=== PATIENT | male | born 1985 | race Caucasian/White ===

== ENCOUNTER 2018-11-01 04:54 | Inpatient (IN) | payer OTHER ==
--- NOTE | 2018-11-01 05:58 | CR ---
INDICATION: Pain, swelling, and redness over the majority of posterior forearm TECHNIQUE: Forearm radiograph 2 views left COMPARISON: None FINDINGS: Bone: No acute fractures or aggressive bone lesions are identified. Joint: The visualized radiocarpal and elbow joints are unremarkable, but the elbow joint is not profiled. If there is pain or tenderness in this region, dedicated views of the elbow are recommended. Soft tissue: Unremarkable. No radiopaque foreign bodies are seen. IMPRESSION: 1. No acute osseous injuries or abnormalities are noted. Dictated by: Hakeem Mars MD @ 11/01/2018 05:56:51 (Electronically Signed)
--- NOTE | 2018-11-01 06:42 | EDM.PDOC ---
ED HPI GENERAL MEDICAL PROBLEM - General Chief Complaint: Upper Extremity Injury/Pain Stated Complaint: POSSIBLE INFECTION ON PT'S LT ARM Time Seen by Provider: 11/01/18 06:23 - History of Present Illness INITIAL COMMENTS - FREE TEXT/NARRATIVE: HISTORY AND PHYSICAL: History of present illness: Patient 33-year-old white male history of methamphetamine abuse who presents with concern of swelling redness of his left arm after injecting IV drugs yesterday. He denies fever chills nausea vomiting or other complaints Review of systems: As per history of present illness and below otherwise all systems reviewed and negative. Past medical history: As per history of present illness and as reviewed below otherwise noncontributory. Surgical history: As per history of present illness and as reviewed below otherwise noncontributory. Social history: No reported history of drug or alcohol abuse. Family history: As per history of present illness and as reviewed below otherwise noncontributory. Physical exam: HEENT: Atraumatic, normocephalic, pupils reactive, negative for conjunctival pallor or scleral icterus, mucous membranes moist, throat clear, neck supple, nontender, trachea midline. Lungs: Clear to auscultation, breath sounds equal bilaterally, chest nontender. Heart: S1S2, regular, negative for clicks, rubs, or JVD. Abdomen: Soft, nondistended, nontender. Negative for masses or hepatosplenomegaly. Negative for costovertebral tenderness. Pelvis: Stable nontender. Genitourinary: Deferred. Rectal: Deferred. Extremities: Patient is a large area of erythema of his left upper extremity with induration and tenderness and warmth there's no fluctuance neurovascular exam CMS unremarkable Neuro: Awake, alert, oriented. Cranial nerves II through XII unremarkable. Cerebellum unremarkable. Motor and sensory unremarkable throughout. Exam nonfocal. Diagnostics: CBC CMP blood cultures and lactic acid x-ray left upper extremity Therapeutics: Vancomycin gram IV Impression: #1 IV drug abuse #2 cellulitis left upper extremity Definitive disposition and diagnosis as appropriate pending reevaluation and review of above. left arm Pain Score (Numeric/FACES): 2 - Related Data Allergies Allergy/AdvReac Type Severity Reaction Status Date / Time No Known Allergies Allergy Verified 11/01/18 04:58 Home Meds: Home Meds . [No Known Home Meds] 11/01/18 [History] Past Medical History Psychiatric History: Reports: Anxiety, Depression Social & Family History - Family History Family Medical History: Noncontributory - Tobacco Use Smoking Status *Q: Current Every Day Smoker Years of Tobacco use: 1 Packs/Tins Daily: 1 - Recreational Drug Use Recreational Drug Use: Yes Drug Use in Last 12 Months: Yes Recreational Drug Type: Reports: Methamphetamine Recreational Drug Use Frequency: Socially Review of Systems - Review of Systems Review Of Systems: ROS reveals no pertinent complaints other than HPI. ED EXAM, GENERAL - Physical Exam Exam: See Below (See dictation) Course - Vital Signs Last Recorded V/S: Last Vital Signs Temp 36.9 C 11/01/18 06:34 Pulse 88 11/01/18 06:34 Resp 18 11/01/18 06:34 BP 129/85 11/01/18 06:34 Pulse Ox 98 11/01/18 06:34 - Orders/Labs/Meds Orders: Active Orders 24 hr Category Date Time Status COMPREHENSIVE METABOLIC PN,CMP [CHEM] Stat Lab 11/01/18 06:25 Ordered CULTURE BLOOD [BC] Stat Lab 11/01/18 06:25 Ordered CULTURE BLOOD [BC] Stat Lab 11/01/18 06:25 Ordered LACTIC ACID,WHOLE BLOOD [BG] Stat Lab 11/01/18 06:25 Ordered Vancomycin [Vancocin] 1 gm Med 11/01/18 06:26 Active Sodium Chloride 0.9% [Normal Saline] 250 ml IV ONETIME Blood Culture x2 Reflex Set [OM.PC] Stat Oth 11/01/18 06:25 Ordered Medication Orders Vancomycin HCl 1 gm/ Sodium (Chloride) 250 mls @ 166 mls/hr IV ONETIME ONE Stop: 11/01/18 07:56 Labs: Laboratory Tests 11/01/18 Range/Units 05:25 WBC 12.56 H (4.0-11.0) K/uL RBC 4.86 (4.50-5.90) M/uL Hgb 15.0 (13.0-17.0) g/dL Hct 43.0 (38.0-50.0) % MCV 88.5 (80.0-98.0) fL MCH 30.9 (27.0-32.0) pg MCHC 34.9 (31.0-37.0) g/dL RDW Std Deviation 38.6 (28.0-62.0) fl RDW Coeff of Sushil 12 (11.0-15.0) % Plt Count 200 (150-400) K/uL MPV 9.70 (7.40-12.00) fL Neut % (Auto) 76.8 (48.0-80.0) % Lymph % (Auto) 11.6 L (16.0-40.0) % [place] % (Auto) 9.4 (0.0-15.0) % Eos % (Auto) 2.0 (0.0-7.0) % Baso % (Auto) 0.2 (0.0-1.5) % Neut # (Auto) 9.6 H (1.4-5.7) K/uL Lymph # (Auto) 1.5 (0.6-2.4) K/uL [place] # (Auto) 1.2 H (0.0-0.8) K/uL Eos # (Auto) 0.3 (0.0-0.7) K/uL Baso # (Auto) 0.0 (0.0-0.1) K/uL Nucleated RBC % 0.0 /100WBC Nucleated RBCs # 0 K/uL Meds: Medications Generic Name Dose Route Start Last Admin Trade Name Freq PRN Reason Stop Dose Admin Vancomycin HCl 1 gm/ Sodium 250 mls @ 166 mls/hr 11/01/18 06:26 Chloride IV 11/01/18 07:56 ONETIME ONE Departure - Departure Time of Disposition: 06:41 Disposition: Refer to Observation Condition: Good Clinical Impression: Cellulitis - Discharge Information Referrals: PCP,None [Primary Care Provider] - - My Orders Last 24 Hours: My Active Orders 11/01/18 06:25 COMPREHENSIVE METABOLIC PN,CMP [CHEM] Stat CULTURE BLOOD [BC] Stat CULTURE BLOOD [BC] Stat LACTIC ACID,WHOLE BLOOD [BG] Stat Blood Culture x2 Reflex Set [OM.PC] Stat 11/01/18 06:26 Vancomycin [Vancocin] 1 gm Sodium Chloride 0.9% [Normal Saline] 250 ml IV ONETIME - Assessment/Plan Last 24 Hours: My Active Orders 11/01/18 06:25 COMPREHENSIVE METABOLIC PN,CMP [CHEM] Stat CULTURE BLOOD [BC] Stat CULTURE BLOOD [BC] Stat LACTIC ACID,WHOLE BLOOD [BG] Stat Blood Culture x2 Reflex Set [OM.PC] Stat 11/01/18 06:26 Vancomycin [Vancocin] 1 gm Sodium Chloride 0.9% [Normal Saline] 250 ml IV ONETIME
[2018-11-01 07:27] LABS: CHLORIDE,CL 102 mmol/L (98-107); SODIUM,NA 137 mmol/L (136-148)
[2018-11-01] MEDS ORDERED: Sodium Chloride 0.9% 2.5 ML Syringe FLUSH PRN (08:14)
[2018-11-01] MEDS ORDERED: Ondansetron 4 MG/2 ML SDV IVPUSH PRN (08:14)
--- NOTE | 2018-11-01 08:23 | PCM.HP ---
H&P History of Present Illness - General Date of Service: 11/01/18 Admit Problem/Dx: Admission Diagnosis/Problem Admission Diagnosis/Problem Cellulitis Source of Information: Patient History Limitations: Reports: No Limitations - History of Present Illness Initial Comments - Free Text/Narative: This 33 year old male with pmh of dyslipidemia presented to the ED with complaints of left arm swelling, pain and redness. He reports he got drunk and injected what he thinks was methamphetamines into his arm. He denies fevers, chills or chest pain. No palpitations or SOB. He denies abdominal pain or urinary concerns. He reports the swelling increased along with some pain so he felt he should be evaluated. He denies regular use of recreational drugs, but states "I get drunk and do stupid stuff." He He reports mild tingling to L hand , but has this normally to both hands from history of leos bite. In the ED leukocytosis noted at 12, 560, potassium 3.1. Forearm Xray negative for foreign bodies. BC obtained and he was treated with Vancomycin. He will be admitted for cellulitis secondary to IV drug use. left arm Pain Score (Numeric/FACES): 2 - Related Data Allergies/Adverse Reactions: Allergies Allergy/AdvReac Type Severity Reaction Status Date / Time No Known Allergies Allergy Verified 11/01/18 04:58 Home Medications: Home Meds . [No Known Home Meds] 11/01/18 [History] Past Medical History Cardiovascular History: Reports: High Cholesterol (reports he should be on statin, but haven't taken this in a long time.). Denies: Afib, Blood Clots/VTE/ DVT, CAD, Hypertension, [place] Respiratory History: Reports: None. Denies: Asthma, COPD Gastrointestinal History: Reports: None. Denies: GERD, GI Bleed Genitourinary History: Reports: None. Denies: Chronic Renal Insuffiency Musculoskeletal History: Reports: None Psychiatric History: Reports: Anxiety, Depression Endocrine/Metabolic History: Reports: None. Denies: Diabetes, Type II, Hypothyroidism Social & Family History - Family History Family Medical History: Noncontributory - Tobacco Use Smoking Status *Q: Current Every Day Smoker Years of Tobacco use: 1 Packs/Tins Daily: 1 - Alcohol Use Alcohol Use Frequency: Socially (binge drinking) - Recreational Drug Use Recreational Drug Use: Yes Drug Use in Last 12 Months: Yes Recreational Drug Type: Reports: Methamphetamine Recreational Drug Use Frequency: Socially - Living Situation & Occupation Occupation: Employed H&P Review of Systems - Review of Systems: Review Of Systems: See Below General: Denies: Fever, Chills, Malaise HEENT: Reports: No Symptoms. Denies: Headaches, Sinus Congestion, Sore Throat Pulmonary: Reports: No Symptoms. Denies: Shortness of Breath Cardiovascular: Reports: No Symptoms. Denies: Chest Pain Gastrointestinal: Reports: No Symptoms. Denies: Abdominal Pain, Black Stool, Bloody Stool, Diarrhea, Nausea, Vomiting Genitourinary: Reports: No Symptoms. Denies: Dysuria, Frequency, Burning Skin: Reports: Erythema (L arm) Psychiatric: Reports: No Symptoms Neurological: Reports: No Symptoms Hematologic/Lymphatic: Reports: No Symptoms Immunologic: Reports: No Symptoms Exam - Exam Exam: See Below - Vital Signs Vital Signs: Last Vital Signs Temp 98.5 F 11/01/18 06:34 Pulse 75 11/01/18 07:30 Resp 18 11/01/18 07:30 BP 118/74 11/01/18 07:30 Pulse Ox 97 11/01/18 07:30 Weight: 91 kg - Exam General: Alert, Oriented, Cooperative HEENT: Conjunctiva Clear, Mucosa Moist & Tiro, Posterior Pharynx Clear Lungs: Clear to Auscultation, Normal Respiratory Effort Cardiovascular: Regular Rate, Regular Rhythm, Normal S1, Normal S2 GI/Abdominal Exam: Normal Bowel Sounds, Soft, Non-Tender Back Exam: Normal Inspection, Full Range of Motion Extremities: Normal Range of Motion, No Pedal Edema, Normal Capillary Refill, Arm Pain (L forearm and AC region) Skin: Other (erythema noted to AC region or L arm all anterior, does wrap anteriorly over elbow. Extends distally to mid forearm does not extend proximally past elbow. Swelling and warm notd. No puncture site obvious no fluctuance noted.) Neuro Extensive - Mental Status: Alert, Oriented x3 Neuro Extensive - Motor, Sensory, Reflexes: CN II-XII Intact Psychiatric: Alert, Normal Affect, Normal Mood. No: Withdrawal Symptoms - Patient Data Lab Results Last 24 hrs: Laboratory Results - last 24 hr 11/01/18 11/01/18 11/01/18 Range/Units 05:25 06:30 06:30 WBC 12.56 H (4.0-11.0) K/uL RBC 4.86 (4.50-5.90) M/uL Hgb 15.0 (13.0-17.0) g/dL Hct 43.0 (38.0-50.0) % MCV 88.5 (80.0-98.0) fL MCH 30.9 (27.0-32.0) pg MCHC 34.9 (31.0-37.0) g/dL RDW Std Deviation 38.6 (28.0-62.0) fl RDW Coeff of Sushil 12 (11.0-15.0) % Plt Count 200 (150-400) K/uL MPV 9.70 (7.40-12.00) fL Neut % (Auto) 76.8 (48.0-80.0) % Lymph % (Auto) 11.6 L (16.0-40.0) % [place] % (Auto) 9.4 (0.0-15.0) % Eos % (Auto) 2.0 (0.0-7.0) % Baso % (Auto) 0.2 (0.0-1.5) % Neut # (Auto) 9.6 H (1.4-5.7) K/uL Lymph # (Auto) 1.5 (0.6-2.4) K/uL [place] # (Auto) 1.2 H (0.0-0.8) K/uL Eos # (Auto) 0.3 (0.0-0.7) K/uL Baso # (Auto) 0.0 (0.0-0.1) K/uL Nucleated RBC % 0.0 /100WBC Nucleated RBCs # 0 K/uL Lactate 1.7 (0.20-2.00) mmol/L Sodium 137 (136-148) mmol/L Potassium 3.1 L (3.5-5.1) mmol/L Chloride 102 (98-107) mmol/L Carbon Dioxide 22.1 (21.0-32.0) mmol/L BUN 6 L (7.0-18.0) mg/dL Creatinine 0.9 (0.8-1.3) mg/dL Est Cr Clr Drug Dosing 136.92 mL/min Estimated GFR (MDRD) > 60.0 ml/min Glucose 93 (74-106) mg/dL Calcium 8.9 (8.5-10.1) mg/dL Total Bilirubin 0.7 (0.2-1.0) mg/dL AST 21 (15-37) IU/L ALT 18 (14-63) IU/L Alkaline Phosphatase 70 (46-116) U/L Total Protein 7.3 (6.4-8.2) g/dL Albumin 3.5 (3.4-5.0) g/dL Globulin 3.8 (2.6-4.0) g/dL Albumin/Globulin Ratio 0.9 (0.9-1.6) Result Diagrams: 11/01/18 05:25 11/01/18 06:30 *Q Meaningful Use (ADM) - VTE Risk Assess *Q Each Risk Factor Represents 1 Point: None Total Score 1 Point Risk Factors: 0 Each Risk Factor Represents 2 Points: None Total Score 2 Point Risk Factors: 0 Each Risk Factor Represents 3 Points: None Total Score 3 Point Risk Factors: 0 Each Risk Factor Represents 5 Points: None Total Score 5 Point Risk Factors: 0 Venous Thromboembolism Risk Factor Score *Q: 0 - Problem List (1) Cellulitis SNOMED Code(s): 792635529 ICD Code: L03.90 - CELLULITIS, UNSPECIFIED Status: Acute Current Visit: Yes Qualifiers: Site of cellulitis: extremity Site of cellulitis of extremity: upper extremity Laterality: left Qualified Code(s): L03.114 - Cellulitis of left upper limb (2) Substance abuse SNOMED Code(s): 88888197 ICD Code: F19.10 - OTHER PSYCHOACTIVE SUBSTANCE ABUSE, UNCOMPLICATED Status : Acute Current Visit: Yes (3) Tobacco abuse SNOMED Code(s): 424257513 ICD Code: Z72.0 - TOBACCO USE Status: Chronic Current Visit: Yes (4) Dyslipidemia SNOMED Code(s): 778289089 ICD Code: E78.5 - HYPERLIPIDEMIA, UNSPECIFIED Status: Chronic Current Visit: Yes (5) Anxiety and depression SNOMED Code(s): 531933447 ICD Code: F41.9 - ANXIETY DISORDER, UNSPECIFIED; F32.9 - MAJOR DEPRESSIVE DISORDER, SINGLE EPISODE, UNSPECIFIED Status: Chronic Current Visit: Yes Problem List Initiated/Reviewed/Updated: Yes Orders Last 24hrs: Active Orders 24 hr Category Date Time Status Patient Status [ADT] Stat ADT 11/01/18 06:42 Active Intake and Output [RC] QSHIFT Care 11/01/18 08:15 Active May Shower [RC] ASDIRECTED Care 11/01/18 08:14 Active Oxygen Therapy [RC] PRN Care 11/01/18 08:15 Active Up ad Vicki [RC] ASDIRECTED Care 11/01/18 08:14 Active VTE/DVT Education [RC] PER UNIT ROUTINE Care 11/01/18 08:15 Active Vital Signs [RC] Q4H Care 11/01/18 08:15 Active Regular Diet [DIET] Diet 11/01/18 Breakfast Active BASIC METABOLIC PANEL,BMP [CHEM] AM Lab 11/02/18 05:11 Ordered CBC WITH AUTO DIFF [HEME] AM Lab 11/02/18 05:11 Ordered CULTURE BLOOD [BC] Stat Lab 11/01/18 06:30 Received CULTURE BLOOD [BC] Stat Lab 11/01/18 06:38 Received Acetaminophen [Tylenol] Med 11/01/18 08:14 Ordered 650 mg PO Q4H PRN Enoxaparin [Lovenox] Med 11/01/18 08:15 Ordered 40 mg SUBCUT Q24H Ibuprofen [Motrin] Med 11/01/18 08:14 Ordered 400 mg PO Q6H PRN Ondansetron [Zofran] Med 11/01/18 08:14 Ordered 4 mg IVPUSH Q4H PRN Pharmacy to Dose - Vancomycin Med 11/01/18 08:30 Ordered 1 dose .XX ASDIRECTED Sodium Chloride 0.9% [Saline Flush] Med 11/01/18 08:14 Ordered 2.5 ml FLUSH ASDIRECTED PRN Blood Culture x2 Reflex Set [OM.PC] Stat Oth 11/01/18 06:25 Ordered Saline Lock Insert [OM.PC] Routine Oth 11/01/18 08:14 Ordered Resuscitation Status Routine Resus Stat 11/01/18 08:14 Ordered Medication Orders Acetaminophen (Tylenol) 650 mg PO Q4H PRN PRN Reason: Pain (mild 1-3) Enoxaparin Sodium (Lovenox) 40 mg SUBCUT Q24H NOBLE Ibuprofen (Motrin) 400 mg PO Q6H PRN PRN Reason: Pain (mild 1-3) Ondansetron HCl (Zofran) 4 mg IVPUSH Q4H PRN PRN Reason: Nausea Sodium Chloride (Saline Flush) 2.5 ml FLUSH ASDIRECTED PRN PRN Reason: Keep Vein Open Vancomycin HCl (Pharmacy To Dose - Vancomycin) 1 dose .XX ASDIRECTED NOBLE Assessment/Plan Comment:: This 33 year old male admitted with L arm cellulitis secondary to IV drug injection 1. L arm cellulitis: No abscess noted. Continue Vancomycin. IVFs today. BC pending. Redness marked to monitor for progression. ABle to move all joints without worsening in pain. Monitor labwork in am. Tylenol and Ibuprofen for pain VTE prophylaxis: Lovenox. Dispo: 1-2 days pending improvement.
[2018-11-01] MEDS: Enoxaparin 40 MG/0.4 ML Syringe SUBCUT SCH (09:19)
[2018-11-01] MEDS: Sodium Chloride 0.9% 1,000 ML IV SCH ×2 (09:20→19:13)
[2018-11-01] MEDS: Vancomycin 1.5 GM in Sodium Chloride 0.9% 500 ML IV SCH ×2 (14:50→22:16)
[2018-11-01] MEDS: Ibuprofen 400 MG Tab PO PRN (14:52)
[2018-11-01] MEDS ORDERED: Potassium Chloride 20 MEQ Tab.ER PO ONE (17:00)
[2018-11-01] MEDS: Acetaminophen 325 MG Tab PO PRN (22:22)
[2018-11-02] MEDS: Vancomycin 1.5 GM in Sodium Chloride 0.9% 500 ML IV SCH ×3 (05:21→22:08)
[2018-11-02 05:57] LABS: CHLORIDE,CL 107 mmol/L (98-107); SODIUM,NA 141 mmol/L (136-148)
[2018-11-02] MEDS: Acetaminophen 325 MG Tab PO PRN (08:06)
[2018-11-02] MEDS: Enoxaparin 40 MG/0.4 ML Syringe SUBCUT SCH (08:10)
--- NOTE | 2018-11-02 10:09 | PCM.PN ---
- General Info Date of Service: 11/02/18 Admission Dx/Problem (Free Text): Admission Diagnosis/Problem Admission Diagnosis/Problem Cellulitis Subjective Update: Doing better today. No chest pain or SOB. Arm pain is improved, but has more localized pain to R AC. Functional Status: Reports: Pain Controlled, Tolerating Diet, Ambulating, Urinating - Review of Systems General: Reports: Malaise. Denies: Fever HEENT: Reports: No Symptoms. Denies: Headaches, Sore Throat, Visual Changes Pulmonary: Reports: No Symptoms. Denies: Shortness of Breath Cardiovascular: Reports: No Symptoms. Denies: Chest Pain Gastrointestinal: Reports: No Symptoms. Denies: Abdominal Pain, Nausea, Vomiting Genitourinary: Reports: No Symptoms Skin: Reports: Other (Redness to R AC and forearm. Improved, but not a hard spot noted.) Neurological: Reports: No Symptoms Psychiatric: Reports: No Symptoms - Patient Data Vitals - Most Recent: Last Vital Signs Temp 98.2 F 11/02/18 07:00 Pulse 83 11/02/18 07:00 Resp 14 11/02/18 07:00 BP 122/64 11/02/18 07:00 Pulse Ox 99 11/02/18 07:00 Weight - Most Recent: 91 kg I&O - Last 24 Hours: Intake & Output 11/01/18 11/02/18 11/02/18 22:59 06:59 14:59 Intake Total 2521 2917 Output Total 350 Balance 2171 2917 Lab Results Last 24 Hours: Laboratory Results - last 24 hr 11/01/18 11/01/18 11/02/18 Range/Units 15:50 15:50 05:15 WBC 7.94 (4.0-11.0) K/uL RBC 4.38 L (4.50-5.90) M/uL Hgb 13.0 (13.0-17.0) g/dL Hct 39.6 (38.0-50.0) % MCV 90.4 (80.0-98.0) fL MCH 29.7 (27.0-32.0) pg MCHC 32.8 (31.0-37.0) g/dL RDW Std Deviation 40.2 (28.0-62.0) fl RDW Coeff of Sushil 12 (11.0-15.0) % Plt Count 191 (150-400) K/uL MPV 10.30 (7.40-12.00) fL Neut % (Auto) 69.9 (48.0-80.0) % Lymph % (Auto) 12.7 L (16.0-40.0) % [place] % (Auto) 9.9 (0.0-15.0) % Eos % (Auto) 7.1 H (0.0-7.0) % Baso % (Auto) 0.4 (0.0-1.5) % Neut # (Auto) 5.6 (1.4-5.7) K/uL Lymph # (Auto) 1.0 (0.6-2.4) K/uL [place] # (Auto) 0.8 (0.0-0.8) K/uL Eos # (Auto) 0.6 (0.0-0.7) K/uL Baso # (Auto) 0.0 (0.0-0.1) K/uL Nucleated RBC % 0.0 /100WBC Nucleated RBCs # 0 K/uL Sodium (136-148) mmol/L Potassium (3.5-5.1) mmol/L Chloride (98-107) mmol/L Carbon Dioxide (21.0-32.0) mmol/L BUN (7.0-18.0) mg/dL Creatinine (0.8-1.3) mg/dL Est Cr Clr Drug Dosing mL/min Estimated GFR (MDRD) ml/min Glucose (74-106) mg/dL Calcium (8.5-10.1) mg/dL Urine Color YELLOW Urine Appearance CLEAR Urine pH 7.0 (5.0-8.0) Ur Specific [place] 1.020 (1.001-1.035) Urine Protein NEGATIVE (NEGATIVE) mg/dL Urine Glucose (UA) NEGATIVE (NEGATIVE) mg/dL Urine Ketones 15 H (NEGATIVE) mg/dL Urine Occult Blood NEGATIVE (NEGATIVE) Urine Nitrite NEGATIVE (NEGATIVE) Urine Bilirubin NEGATIVE (NEGATIVE) Urine Urobilinogen 1.0 (<2.0) EU/dL Ur Leukocyte Esterase NEGATIVE (NEGATIVE) Urine Opiates Screen NEGATIVE (NEGATIVE) Ur Oxycodone Screen NEGATIVE (NEGATIVE) Urine Methadone Screen NEGATIVE (NEGATIVE) Ur Barbiturates Screen NEGATIVE (NEGATIVE) Ur Phencyclidine Scrn NEGATIVE (NEGATIVE) Ur Amphetamine Screen NEGATIVE (NEGATIVE) U Methamphetamines Scrn POSITIVE (NEGATIVE) U Benzodiazepines Scrn POSITIVE (NEGATIVE) U Cocaine Metab Screen NEGATIVE (NEGATIVE) U Marijuana (THC) Screen NEGATIVE (NEGATIVE) 11/02/18 Range/Units 05:15 WBC (4.0-11.0) K/uL RBC (4.50-5.90) M/uL Hgb (13.0-17.0) g/dL Hct (38.0-50.0) % MCV (80.0-98.0) fL MCH (27.0-32.0) pg MCHC (31.0-37.0) g/dL RDW Std Deviation (28.0-62.0) fl RDW Coeff of Sushil (11.0-15.0) % Plt Count (150-400) K/uL MPV (7.40-12.00) fL Neut % (Auto) (48.0-80.0) % Lymph % (Auto) (16.0-40.0) % [place] % (Auto) (0.0-15.0) % Eos % (Auto) (0.0-7.0) % Baso % (Auto) (0.0-1.5) % Neut # (Auto) (1.4-5.7) K/uL Lymph # (Auto) (0.6-2.4) K/uL [place] # (Auto) (0.0-0.8) K/uL Eos # (Auto) (0.0-0.7) K/uL Baso # (Auto) (0.0-0.1) K/uL Nucleated RBC % /100WBC Nucleated RBCs # K/uL Sodium 141 (136-148) mmol/L Potassium 3.8 (3.5-5.1) mmol/L Chloride 107 (98-107) mmol/L Carbon Dioxide 26.8 (21.0-32.0) mmol/L BUN 6 L (7.0-18.0) mg/dL Creatinine 0.8 (0.8-1.3) mg/dL Est Cr Clr Drug Dosing 154.04 mL/min Estimated GFR (MDRD) > 60.0 ml/min Glucose 134 H (74-106) mg/dL Calcium 7.9 L (8.5-10.1) mg/dL Urine Color Urine Appearance Urine pH (5.0-8.0) Ur Specific [place] (1.001-1.035) Urine Protein (NEGATIVE) mg/dL Urine Glucose (UA) (NEGATIVE) mg/dL Urine Ketones (NEGATIVE) mg/dL Urine Occult Blood (NEGATIVE) Urine Nitrite (NEGATIVE) Urine Bilirubin (NEGATIVE) Urine Urobilinogen (<2.0) EU/dL Ur Leukocyte Esterase (NEGATIVE) Urine Opiates Screen (NEGATIVE) Ur Oxycodone Screen (NEGATIVE) Urine Methadone Screen (NEGATIVE) Ur Barbiturates Screen (NEGATIVE) Ur Phencyclidine Scrn (NEGATIVE) Ur Amphetamine Screen (NEGATIVE) U Methamphetamines Scrn (NEGATIVE) U Benzodiazepines Scrn (NEGATIVE) U Cocaine Metab Screen (NEGATIVE) U Marijuana (THC) Screen (NEGATIVE) Stepan Results Last 24 Hours: Microbiology 11/01/18 06:38 Aerobic Blood Culture - Preliminary Blood - Venous - Lab Draw NO GROWTH AFTER 1 DAY Anaerobic Blood Culture - Preliminary NO GROWTH AFTER 1 DAY 11/01/18 06:30 Aerobic Blood Culture - Preliminary Blood - Venous NO GROWTH AFTER 1 DAY Anaerobic Blood Culture - Preliminary NO GROWTH AFTER 1 DAY Med Orders - Current: Current Medications Acetaminophen (Tylenol) 650 mg PO Q4H PRN PRN Reason: Pain (mild 1-3) Last Admin: 11/02/18 08:06 Dose: 650 mg Enoxaparin Sodium (Lovenox) 40 mg SUBCUT Q24H [facility] Last Admin: 11/02/18 08:10 Dose: 40 mg Sodium Chloride (Normal Saline) 1,000 mls @ 125 mls/hr IV ASDIRECTED [facility] Stop: 11/02/18 16:44 Last Admin: 11/01/18 19:13 Dose: 125 mls/hr Vancomycin HCl 1.5 gm/ Sodium (Chloride) 500 mls @ 250 mls/hr IV Q8H [facility] Last Admin: 11/02/18 05:21 Dose: 250 mls/hr Ibuprofen (Motrin) 400 mg PO Q6H PRN PRN Reason: Pain (mild 1-3) Last Admin: 11/01/18 14:52 Dose: 400 mg Ondansetron HCl (Zofran) 4 mg IVPUSH Q4H PRN PRN Reason: Nausea Sodium Chloride (Saline Flush) 2.5 ml FLUSH ASDIRECTED PRN PRN Reason: Keep Vein Open Vancomycin HCl (Pharmacy To Dose - Vancomycin) 1 dose .XX ASDIRECTED NOBLE Discontinued Medications Vancomycin HCl 1 gm/ Sodium (Chloride) 250 mls @ 166 mls/hr IV ONETIME ONE Stop: 11/01/18 07:56 Last Admin: 11/01/18 06:42 Dose: 166 mls/hr Potassium Chloride (Klor-Con M20) 40 meq PO ONETIME ONE Stop: 11/01/18 17:01 Last Admin: 11/01/18 16:22 Dose: 40 meq - Exam General: Alert, Oriented, Cooperative, No Acute Distress Lungs: Clear to Auscultation, Normal Respiratory Effort Cardiovascular: Regular Rate, Regular Rhythm GI/Abdominal Exam: Normal Bowel Sounds, Soft, Non-Tender Extremities: Normal Range of Motion, Non-Tender, No Pedal Edema, Normal Capillary Refill Peripheral Pulses: 2+: Brachial (L), Brachial (R), Radial (L), Radial (R) Wound/Incisions: Erythema Improving (slight increase in erythema proximally up bicep, distally erythema improving. No pain upon movement of wrist fingers or elbow. induration noted in AC approx 1 in x1 in, no fluctuance.) - Problem List & Annotations (1) Cellulitis SNOMED Code(s): 990072190 Code(s): L03.90 - CELLULITIS, UNSPECIFIED Status: Acute Current Visit: Yes Qualifiers: Site of cellulitis: extremity Site of cellulitis of extremity: upper extremity Laterality: left Qualified Code(s): L03.114 - Cellulitis of left upper limb (2) Substance abuse SNOMED Code(s): 41906742 Code(s): F19.10 - OTHER PSYCHOACTIVE SUBSTANCE ABUSE, UNCOMPLICATED Status : Acute Current Visit: Yes (3) Tobacco abuse SNOMED Code(s): 210541951 Code(s): Z72.0 - TOBACCO USE Status: Chronic Current Visit: Yes (4) Dyslipidemia SNOMED Code(s): 379319214 Code(s): E78.5 - HYPERLIPIDEMIA, UNSPECIFIED Status: Chronic Current Visit: Yes (5) Anxiety and depression SNOMED Code(s): 559602689 Code(s): F41.9 - ANXIETY DISORDER, UNSPECIFIED; F32.9 - MAJOR DEPRESSIVE DISORDER, SINGLE EPISODE, UNSPECIFIED Status: Chronic Current Visit: Yes - Problem List Review Problem List Initiated/Reviewed/Updated: Yes - My Orders Last 24 Hours: My Active Orders 11/01/18 14:00 Vancomycin 1.5 gm Sodium Chloride 0.9% [Normal Saline] 500 ml IV Q8H 11/02/18 13:30 VANCOMYCIN TROUGH [CHEM] Routine - Plan Plan:: This 33 year old male admitted with L arm cellulitis secondary to IV drug injection 1. L arm cellulitis: Leukocytosis improved, Continue Vancomycin. IVFs today. BC no growth x 1 day. Erythema slow to improve. Able to move all joints without worsening in pain. CMS intact. Monitor labwork in am. Tylenol and Ibuprofen for pain VTE prophylaxis: Lovenox. Dispo: 1-2 days pending improvement.
[2018-11-02] MEDS: Ibuprofen 400 MG Tab PO PRN (16:51)
[2018-11-03] MEDS: Acetaminophen 325 MG Tab PO PRN ×3 (00:34→13:36)
[2018-11-03] MEDS: Vancomycin 1.5 GM in Sodium Chloride 0.9% 500 ML IV SCH ×3 (05:45→22:22)
[2018-11-03 07:00] LABS: CHLORIDE,CL 108 mmol/L (98-107); SODIUM,NA 142 mmol/L (136-148)
[2018-11-03] MEDS: Enoxaparin 40 MG/0.4 ML Syringe SUBCUT SCH (09:07)
--- NOTE | 2018-11-03 13:10 | PCM.PN ---
- General Info Date of Service: 11/03/18 - Review of Systems Systems Review Comment:: edema improving - Patient Data Vitals - Most Recent: Last Vital Signs Temp 36.9 C 11/03/18 11:00 Pulse 70 11/03/18 11:00 Resp 20 11/03/18 11:00 BP 99/56 L 11/03/18 11:00 Pulse Ox 98 11/03/18 11:00 Weight - Most Recent: 91 kg I&O - Last 24 Hours: Intake & Output 11/02/18 11/03/18 11/03/18 22:59 06:59 14:59 Intake Total 1000 1100 240 Output Total 970 1350 Balance 30 -250 240 Lab Results Last 24 Hours: Laboratory Results - last 24 hr 11/02/18 11/03/18 11/03/18 Range/Units 13:30 06:14 06:14 WBC 6.35 (4.0-11.0) K/uL RBC 4.70 (4.50-5.90) M/uL Hgb 14.2 (13.0-17.0) g/dL Hct 42.8 (38.0-50.0) % MCV 91.1 (80.0-98.0) fL MCH 30.2 (27.0-32.0) pg MCHC 33.2 (31.0-37.0) g/dL RDW Std Deviation 41.3 (28.0-62.0) fl RDW Coeff of Sushil 12 (11.0-15.0) % Plt Count 226 (150-400) K/uL MPV 10.80 (7.40-12.00) fL Neut % (Auto) 60.2 (48.0-80.0) % Lymph % (Auto) 21.4 (16.0-40.0) % Hartley % (Auto) 10.7 (0.0-15.0) % Eos % (Auto) 7.1 H (0.0-7.0) % Baso % (Auto) 0.6 (0.0-1.5) % Neut # (Auto) 3.8 (1.4-5.7) K/uL Lymph # (Auto) 1.4 (0.6-2.4) K/uL Hartley # (Auto) 0.7 (0.0-0.8) K/uL Eos # (Auto) 0.5 (0.0-0.7) K/uL Baso # (Auto) 0.0 (0.0-0.1) K/uL Nucleated RBC % 0.0 /100WBC Nucleated RBCs # 0 K/uL Sodium 142 (136-148) mmol/L Potassium 3.8 (3.5-5.1) mmol/L Chloride 108 H (98-107) mmol/L Carbon Dioxide 26.4 (21.0-32.0) mmol/L BUN 4 L (7.0-18.0) mg/dL Creatinine 0.7 L (0.8-1.3) mg/dL Est Cr Clr Drug Dosing 176.04 mL/min Estimated GFR (MDRD) > 60.0 ml/min Glucose 102 (74-106) mg/dL Calcium 8.5 (8.5-10.1) mg/dL Vancomycin Trough 12.0 H (5.0-10.0) ug/mL Stepan Results Last 24 Hours: Microbiology 11/01/18 06:38 Aerobic Blood Culture - Preliminary Blood - Venous - Lab Draw NO GROWTH AFTER 2 DAYS Anaerobic Blood Culture - Preliminary NO GROWTH AFTER 2 DAYS 11/01/18 06:30 Aerobic Blood Culture - Preliminary Blood - Venous NO GROWTH AFTER 2 DAYS Anaerobic Blood Culture - Preliminary NO GROWTH AFTER 2 DAYS Med Orders - Current: Current Medications Acetaminophen (Tylenol) 650 mg PO Q4H PRN PRN Reason: Pain (mild 1-3) Last Admin: 11/03/18 09:19 Dose: 650 mg Enoxaparin Sodium (Lovenox) 40 mg SUBCUT Q24H [facility] Last Admin: 11/03/18 09:07 Dose: 40 mg Vancomycin HCl 1.5 gm/ Sodium (Chloride) 500 mls @ 250 mls/hr IV Q8H [facility] Last Admin: 11/03/18 05:45 Dose: 250 mls/hr Ibuprofen (Motrin) 400 mg PO Q6H PRN PRN Reason: Pain (mild 1-3) Last Admin: 11/02/18 16:51 Dose: 400 mg Ondansetron HCl (Zofran) 4 mg IVPUSH Q4H PRN PRN Reason: Nausea Sodium Chloride (Saline Flush) 2.5 ml FLUSH ASDIRECTED PRN PRN Reason: Keep Vein Open Vancomycin HCl (Pharmacy To Dose - Vancomycin) 1 dose .XX ASDIRECTED [facility] Discontinued Medications Vancomycin HCl 1 gm/ Sodium (Chloride) 250 mls @ 166 mls/hr IV ONETIME ONE Stop: 11/01/18 07:56 Last Admin: 11/01/18 06:42 Dose: 166 mls/hr Sodium Chloride (Normal Saline) 1,000 mls @ 125 mls/hr IV ASDIRECTED [facility] Stop: 11/02/18 16:44 Last Admin: 11/01/18 19:13 Dose: 125 mls/hr Potassium Chloride (Klor-Con M20) 40 meq PO ONETIME ONE Stop: 11/01/18 17:01 Last Admin: 11/01/18 16:22 Dose: 40 meq - Exam General: Alert, Oriented HEENT: Mucous Membr. Moist/[place] Neck: Supple Lungs: Clear to Auscultation, Normal Respiratory Effort Cardiovascular: Regular Rate, Regular Rhythm GI/Abdominal Exam: Normal Bowel Sounds, Soft, Non-Tender Extremities: No Pedal Edema Skin: Other (erythema of left arm improving. 1 cm inuration of point of injection, but no area of fluctuance) - Problem List Review Problem List Initiated/Reviewed/Updated: Yes - My Orders Last 24 Hours: My Active Orders 11/04/18 13:00 VANCOMYCIN TROUGH [CHEM] Routine - Plan Plan:: This 33 year old male admitted with L arm cellulitis secondary to IV drug injection. We will continue vancomycin. His cellulitis continues to improve. Patient called his primary care provider today with request with help regarding VA benefits. The doctor then called and spoke to nursing accountant supervisor regarding his concern with patient's mental health for the past two weeks as he believes he may try to harm himself. Patient does admit to me that he tried to cause harm when he injected. He states that he has no suicidal ideation currently. I have called Dr. Magaña regarding psych consultation.
--- NOTE | 2018-11-03 17:56 | CONS ---
DATE OF CONSULTATION: 11/03/2018 DATE OF : 1985 PRIMARY CARE PHYSICIAN: None PCP Site where the services are provided, our [facility] in [place], [place]. Site where the services are provided from, our offices in [facility]. Length of time for this 60-minute inpatient clinical event is 60 minutes. IDENTIFICATION: The patient is a 33-year-old male, who was admitted to the inpatient med/surg unit at [facility] in [place], [place], on November 01, 2018. He is seen for psychiatric consultation and evaluation at the request of staff attending, Dr. Monahan, and his treatment team. CHIEF COMPLAINT: "Been dealing with a lot of stress for a long time." HISTORY OF PRESENT ILLNESS: The patient is a 33-year-old male, who reports that he had been drinking heavily with a friend when that friend gave him something to inject, and he injected that into his left elbow and subsequently developed a cellulitis. The patient came in for help after his elbow began swelling. There was some question from staff of whether this was a suicide attempt or not, and on interview, the patient was denying that he was suicidal, but also states "I don't know, I can't really remember, I was pretty drunk." He states "that's why I don't try to drink too much." He does acknowledge that he has been struggling with quite a bit of stress lately. He states "anxiety, that's the biggest thing. I just got drunk, and I experimented with self-injection." The patient states that it is "anxiety and stress" as well as some mood swings and irritability. The patient also endorses poor sleep patterns. The patient states that the main trigger right now is that his girlfriend of three years and his two children are over in [place], and he is staying by himself here in [place]. He states the reason his girlfriend went back to [place] is because "her parents are sick and it has just been stressing me out," being alone and not knowing what is going on in that regard. 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 At this point in time, the patient reports ongoing flashback, hypervigilance, and racing thoughts or ruminations. He had seen a counselor in the past and that was helpful, but he stopped seeing a counselor a little over a year ago. The patient has also been on psychiatric medications. He states the vast majority of it did not help did make him feel a little better and again he has been off psych medications for about a year. Again, the patient is denying that he is suicidal or homicidal. He denies any suicidal or homicidal ideation at this point in time or previously. He denies having any guns or weapons at his house. He is audra for safety. He is stating that he wants to get a little help and does speculate that this most recent situation that developed into his present hospitalization "was probably a cry for help." He also denies any psychotic, delusional, paranoid symptoms, and aside from the alcohol use where he states he is binge drinking about 2 to 3 times a month, he denies any illicit substance use complicating his clinical picture, except for this one time incident where he was injecting something that his friend gave him, and the staff is thinking it might have been meth that he was given. MEDICATIONS: At time presentation and admission, none. ALLERGIES: No known drug allergies. PAST MEDICAL HISTORY: Cellulitis in left elbow area. REVIEW OF SYSTEMS: Aside from musculoskeletal, all other major organ-systems are negative at this point in time for acute difficulties or complications. FAMILY PSYCHIATRIC AND CD HISTORY: The patient denies. PAST PSYCHIATRIC AND CD HISTORY: The patient denies any previous psychiatric hospitalizations or chemical dependency treatments. He has been binge drinking lately about 2 to 3 times a month he states. Denies any previous suicide attempts, self-injurious behaviors. Reports no eating disorder history. Denies any tattoo history. Past psychiatric medication history includes gabapentin, but he states he could not tolerate this medication even though it helped him because he developed rash. The patient was in counseling in the past at the [facility] and that process helped. SOCIAL HISTORY: The patient was born and raised in [place], [place]. He is one of 17 children, in the middle of the pack. He states his biological parents were never . He was raised by his mom and stepfather. He did not know his father growing up. The patient's hospital education is one year of college. He has never been , but been in current relationship for three years and has two children from the current relationship. He lives in [place] by himself right now while his and two children are over in with both parents. 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 He was primarily infantry and lainez crew. He received an honorable discharge. He was deployed in [place] in 2003 to 2005. He denies any legal issues. He is agnostic in terms of his leonard formation. He enjoys being involved in a veterans helping 's program in his spare time. MENTAL STATUS EXAM: The patient is a 33-year-old male in no apparent distress. Speech is of regular rate and rhythm. The patient is cognitively oriented. Psychomotor activities within normal limits. There are no abnormal motor movements or tics observed. Gait and station are normal and steady. Psychomotor activities within normal limits. The patient is cognitively oriented x3. Mood is anxious and somewhat socially depressed. Affect is cooperative overall for the purposes of the intake interview and possibly a little restricted. There is no behavioral or stated evidence of acute suicidal or homicidal ideation or acute psychotic, delusional, or paranoid symptoms. Thought processes are significant for flashbacks and racing thoughts and ruminations. There are no acute manic symptoms or loose associations evident. Judgment and insight appear unimpaired at this point in time. Motivation for help is good. VITALS: At time of presentation; 99/56, 70, 20, 36.9 degrees centigrade. IMPRESSION: [place] I: 1. Posttraumatic stress disorder, F43.10. 2. Alcohol abuse verus dependence. 3. Rule out bipolar affective disease, mixed type. 4. Rule out major depressive disorder. [place] II: None. [place] III: Cellulitis in left elbow area. [place] IV: Severe. [place] V: 60. PLAN: 1. Sobriety. 2. Counseling for psychosocial issues. 3. AA to help with maintaining sobriety. 4. Chemical dependency treatment, either in outpatient or inpatient basis if the patient is unable to maintain sobriety on his own. 5. Recommend beginning a trial of Seroquel 50 mg at bedtime for clarity of thought, mood stability, sleep initiation and maintenance, and anxiety reduction. 6. Recommend beginning a trial of Topamax 25 mg b.i.d. for mood disorder and anxiety reduction. 7. Would recommend following up with outpatient psychiatry once the patient is medically stabilized and discharged back to the community. At this point in time, the patient does not appear to be a danger to himself or others, and therefore, when he is medically stabilized, he does appear safe to be discharged back to the community, but he should have psychiatric services as scheduled for followup again to assess his overall psychiatric medication regimen and treatment plan. 8. We will continue to follow up with the patient on as-needed basis while he remains on the inpatient med/surg unit at [facility] in [place], [place]. 9. We will follow up with the patient sooner if any complications in the interim. 10.Crisis plan is in place. ANDREZ / LING /[id number]
[2018-11-03] MEDS: Topiramate 50 MG Tab PO SCH (20:46)
[2018-11-04] MEDS: Acetaminophen 325 MG Tab PO PRN (00:34)
[2018-11-04] MEDS: Vancomycin 1.5 GM in Sodium Chloride 0.9% 500 ML IV SCH ×3 (05:43→22:01)
[2018-11-04 06:50] LABS: CHLORIDE,CL 112 mmol/L (98-107); SODIUM,NA 145 mmol/L (136-148)
[2018-11-04] MEDS: Enoxaparin 40 MG/0.4 ML Syringe SUBCUT SCH (08:56)
[2018-11-04] MEDS: Topiramate 50 MG Tab PO SCH ×2 (08:56→20:21)
--- NOTE | 2018-11-04 16:04 | PCM.PN ---
- General Info Date of Service: 11/04/18 - Review of Systems Systems Review Comment:: redness of arm improving, induration of site of puncture - Patient Data Vitals - Most Recent: Last Vital Signs Temp 37.1 C 11/04/18 11:00 Pulse 55 L 11/04/18 11:00 Resp 20 11/04/18 11:00 BP 114/55 L 11/04/18 11:00 Pulse Ox 98 11/04/18 11:00 Weight - Most Recent: 91 kg I&O - Last 24 Hours: Intake & Output 11/04/18 11/04/18 11/04/18 06:59 14:59 22:59 Intake Total 1000 Output Total 1400 Balance -400 Lab Results Last 24 Hours: Laboratory Results - last 24 hr 11/04/18 11/04/18 11/04/18 Range/Units 06:01 06:01 13:15 WBC 5.89 (4.0-11.0) K/uL RBC 4.50 (4.50-5.90) M/uL Hgb 13.3 (13.0-17.0) g/dL Hct 40.9 (38.0-50.0) % MCV 90.9 (80.0-98.0) fL MCH 29.6 (27.0-32.0) pg MCHC 32.5 (31.0-37.0) g/dL RDW Std Deviation 41.0 (28.0-62.0) fl RDW Coeff of Sushil 12 (11.0-15.0) % Plt Count 240 (150-400) K/uL MPV 9.90 (7.40-12.00) fL Neut % (Auto) 51.3 (48.0-80.0) % Lymph % (Auto) 28.2 (16.0-40.0) % [place] % (Auto) 11.5 (0.0-15.0) % Eos % (Auto) 8.5 H (0.0-7.0) % Baso % (Auto) 0.5 (0.0-1.5) % Neut # (Auto) 3.0 (1.4-5.7) K/uL Lymph # (Auto) 1.7 (0.6-2.4) K/uL [place] # (Auto) 0.7 (0.0-0.8) K/uL Eos # (Auto) 0.5 (0.0-0.7) K/uL Baso # (Auto) 0.0 (0.0-0.1) K/uL Nucleated RBC % 0.0 /100WBC Nucleated RBCs # 0 K/uL Sodium 145 (136-148) mmol/L Potassium 3.9 (3.5-5.1) mmol/L Chloride 112 H (98-107) mmol/L Carbon Dioxide 25.0 (21.0-32.0) mmol/L BUN 6 L (7.0-18.0) mg/dL Creatinine 0.8 (0.8-1.3) mg/dL Est Cr Clr Drug Dosing 154.04 mL/min Estimated GFR (MDRD) > 60.0 ml/min Glucose 105 (74-106) mg/dL Calcium 8.4 L (8.5-10.1) mg/dL Vancomycin Trough 17.6 H (5.0-10.0) ug/mL Stepan Results Last 24 Hours: Microbiology 11/01/18 06:38 Aerobic Blood Culture - Preliminary Blood - Venous - Lab Draw NO GROWTH AFTER 3 DAYS Anaerobic Blood Culture - Preliminary NO GROWTH AFTER 3 DAYS 11/01/18 06:30 Aerobic Blood Culture - Preliminary Blood - Venous NO GROWTH AFTER 3 DAYS Anaerobic Blood Culture - Preliminary NO GROWTH AFTER 3 DAYS Med Orders - Current: Current Medications Acetaminophen (Tylenol) 650 mg PO Q4H PRN PRN Reason: Pain (mild 1-3) Last Admin: 11/04/18 00:34 Dose: 650 mg Enoxaparin Sodium (Lovenox) 40 mg SUBCUT Q24H [facility] Last Admin: 11/04/18 08:56 Dose: 40 mg Vancomycin HCl 1.5 gm/ Sodium (Chloride) 500 mls @ 250 mls/hr IV Q8H [facility] Last Admin: 11/04/18 14:46 Dose: 250 mls/hr Ibuprofen (Motrin) 400 mg PO Q6H PRN PRN Reason: Pain (mild 1-3) Last Admin: 11/02/18 16:51 Dose: 400 mg Ondansetron HCl (Zofran) 4 mg IVPUSH Q4H PRN PRN Reason: Nausea Quetiapine Fumarate (Seroquel) 50 mg PO BEDTIME [facility] Last Admin: 11/03/18 20:51 Dose: 50 mg Sodium Chloride (Saline Flush) 2.5 ml FLUSH ASDIRECTED PRN PRN Reason: Keep Vein Open Topiramate (Topamax) 25 mg PO BID [facility] Last Admin: 11/04/18 08:56 Dose: 25 mg Vancomycin HCl (Pharmacy To Dose - Vancomycin) 1 dose .XX ASDIRECTED [facility] Discontinued Medications Vancomycin HCl 1 gm/ Sodium (Chloride) 250 mls @ 166 mls/hr IV ONETIME ONE Stop: 11/01/18 07:56 Last Admin: 11/01/18 06:42 Dose: 166 mls/hr Sodium Chloride (Normal Saline) 1,000 mls @ 125 mls/hr IV ASDIRECTED [facility] Stop: 11/02/18 16:44 Last Admin: 11/01/18 19:13 Dose: 125 mls/hr Potassium Chloride (Klor-Con M20) 40 meq PO ONETIME ONE Stop: 11/01/18 17:01 Last Admin: 11/01/18 16:22 Dose: 40 meq - Exam General: Alert, Oriented Neck: Supple Lungs: Clear to Auscultation, Normal Respiratory Effort Cardiovascular: Regular Rate, Regular Rhythm GI/Abdominal Exam: Soft, Non-Tender Extremities: No Pedal Edema Skin: Other (erythema of left arm improving, 1 cm area of induration of anticubital fossa, no area of fluctuance) - Problem List Review Problem List Initiated/Reviewed/Updated: Yes - My Orders Last 24 Hours: My Active Orders 11/03/18 21:00 QUEtiapine [SEROquel] 50 mg PO BEDTIME Topiramate [Topamax] 25 mg PO BID 11/04/18 08:59 Admission Status [Patient Status] [ADT] Routine - Plan Plan:: This 33 year old male admitted with L arm cellulitis secondary to IV drug injection. We will continue vancomycin. Atnicipate discharge home tomorrow. Dr. Magaña was consulted and recommended Seroquel 50mg at night and topamax 50mg BID to help with mood disorders.
[2018-11-05] MEDS: Acetaminophen 325 MG Tab PO PRN (00:14)
[2018-11-05] MEDS: Vancomycin 1.5 GM in Sodium Chloride 0.9% 500 ML IV SCH (05:50)
[2018-11-05 06:13] LABS: CHLORIDE,CL 110 mmol/L (98-107); SODIUM,NA 145 mmol/L (136-148)
[2018-11-05] MEDS: Topiramate 50 MG Tab PO SCH (09:09)
[2018-11-05] MEDS: Enoxaparin 40 MG/0.4 ML Syringe SUBCUT SCH (09:09)
--- NOTE | 2018-11-05 11:42 | PCM.DCSUM1 ---
Discharge Summary - Hospital Course Brief History: This 33 year old male with pmh of dyslipidemia presented to the ED with complaints of left arm swelling, pain and redness. He reports he got drunk and injected what he thinks was methamphetamines into his arm. He denies fevers, chills or chest pain. No palpitations or SOB. He denies abdominal pain or urinary concerns. He reports the swelling increased along with some pain so he felt he should be evaluated. He denies regular use of recreational drugs, but states "I get drunk and do stupid stuff." He He reports mild tingling to L hand, but has this normally to both hands from history of leos bite. In the ED leukocytosis noted at 12,560, potassium 3.1. Forearm Xray negative for foreign bodies. BC obtained and he was treated with Vancomycin. He will be admitted for cellulitis secondary to IV drug use. Diagnosis: Stroke: No - Discharge Data Discharge Date: 11/05/18 Discharge Disposition: Home, Self-Care 01 Condition: Good - Discharge Diagnosis/Problem(s) (1) Cellulitis SNOMED Code(s): 381943653 ICD Code: L03.90 - CELLULITIS, UNSPECIFIED Status: Acute Qualifiers: Site of cellulitis: extremity Site of cellulitis of extremity: upper extremity Laterality: left Qualified Code(s): L03.114 - Cellulitis of left upper limb (2) Substance abuse SNOMED Code(s): 31253086 ICD Code: F19.10 - OTHER PSYCHOACTIVE SUBSTANCE ABUSE, UNCOMPLICATED Status : Acute (3) Tobacco abuse SNOMED Code(s): 848283346 ICD Code: Z72.0 - TOBACCO USE Status: Chronic (4) Dyslipidemia SNOMED Code(s): 405338804 ICD Code: E78.5 - HYPERLIPIDEMIA, UNSPECIFIED Status: Chronic (5) Anxiety and depression SNOMED Code(s): 811931710 ICD Code: F41.9 - ANXIETY DISORDER, UNSPECIFIED; F32.9 - MAJOR DEPRESSIVE DISORDER, SINGLE EPISODE, UNSPECIFIED Status: Chronic - Patient Instructions Diet: Regular Diet as Tolerated Activity: As Tolerated Showering/Bathing: May Shower Notify Provider of: Fever, Increased Pain, Swelling and Redness, Drainage, Nausea and/or Vomiting - Discharge Plan *PRESCRIPTION DRUG MONITORING PROGRAM REVIEWED*: Not Applicable *COPY OF PRESCRIPTION DRUG MONITORING REPORT IN PATIENT JOSÉ: Not Applicable Prescriptions/Med Rec: QUEtiapine [SEROquel] 50 mg PO BEDTIME #14 tablet Sulfamethoxazole/Trimethoprim [Bactrim Ds Tablet] 1 each PO BID #12 tablet Topiramate [Topamax] 25 mg PO BID #14 tablet Home Medications: Home Meds QUEtiapine [SEROquel] 50 mg PO BEDTIME #14 tablet 11/05/18 [Rx] Sulfamethoxazole/Trimethoprim [Bactrim Ds Tablet] 1 each PO BID #12 tablet 11/05 [Rx] Topiramate [Topamax] 25 mg PO BID #14 tablet 11/05/18 [Rx] Patient Handouts: Quetiapine tablets, Cellulitis, Adult, [id number], Sulfamethoxazole; Trimethoprim, SMX-TMP tablets, Topiramate tablets Referrals: [facility] [Outside] Jitendra Pepe MD [Ordering Only Provider] - 11/12/18 10:00 am (This appointment is made at the [facility]) - Discharge Summary/Plan Comment DC Time >30 min.: No Discharge Summary/Plan Comment: Admitting Diagnoses: L arm cellulitis Discharge Diagnoses: L arm cellulitis Anxiety PTSD Keyshawn was admitted for cellulitis, he was continued on Vancomycin, cellulitis steadily improved as did leukocytosis. He had telepsych consult after he contacted [facility] with needing help with anxiety. Please see Dr Magaña's consulation noted. He recommended started Seroquel and Topamax. These were started. Today Keyshawn is feeling good with his mood, no suicidal ideation and anxiety has improved as well. Cellulitis has improved nicely, small area on induration noted to AC no fluctuance and little pain. He will be discharged home today with Bactrim DS for 6 more days. I also gave him a prescription for Seroquel and Topamax x 14 [facility]. He should have referral to psychologist from [facility]. He said he will speak with Dr Pepe at [facility] regarding this. He reports he used to see someone through the [facility] and will plan on using them again. He is to return to ED or clinic concerns should arise. - General Info Date of Service: 11/05/18 Admission Dx/Problem (Free Text: Admission Diagnosis/Problem Admission Diagnosis/Problem Cellulitis Subjective Update: Doing well this morning, no complaints. Eager to be discharged home. Anxiety stable, no thoughts of self harm. Functional Status: Reports: Pain Controlled, Tolerating Diet, Ambulating - Review of Systems General: Reports: No Symptoms. Denies: Fever, Weakness, Fatigue HEENT: Reports: No Symptoms. Denies: Headaches, Visual Changes Pulmonary: Reports: No Symptoms. Denies: Shortness of Breath Cardiovascular: Reports: No Symptoms. Denies: Chest Pain Gastrointestinal: Reports: No Symptoms. Denies: Abdominal Pain, Diarrhea, Nausea, Vomiting Genitourinary: Reports: No Symptoms. Denies: Dysuria, Frequency Skin: Reports: Other (tenderness to L AC, redness much better.) Neurological: Reports: No Symptoms Psychiatric: Reports: No Symptoms. Denies: Anxiety, Suicidal Ideation - Patient Data Vitals - Most Recent: Last Vital Signs Temp 97.1 F 11/05/18 07:20 Pulse 62 11/05/18 07:20 Resp 16 11/05/18 07:20 BP 107/58 L 11/05/18 07:20 Pulse Ox 95 11/05/18 07:20 Weight - Most Recent: 91 kg I&O - Last 24 hours: Intake & Output 11/04/18 11/05/18 11/05/18 22:59 06:59 14:59 Intake Total 3100 1300 Output Total 1780 1380 Balance 1320 -80 Lab Results - Last 24 hrs: Laboratory Results - last 24 hr 11/04/18 11/05/18 11/05/18 Range/Units 13:15 05:20 05:20 WBC 5.86 (4.0-11.0) K/uL RBC 4.51 (4.50-5.90) M/uL Hgb 13.7 (13.0-17.0) g/dL Hct 41.3 (38.0-50.0) % MCV 91.6 (80.0-98.0) fL MCH 30.4 (27.0-32.0) pg MCHC 33.2 (31.0-37.0) g/dL RDW Std Deviation 40.9 (28.0-62.0) fl RDW Coeff of Sushil 12 (11.0-15.0) % Plt Count 255 (150-400) K/uL MPV 9.90 (7.40-12.00) fL Neut % (Auto) 47.4 L (48.0-80.0) % Lymph % (Auto) 31.6 (16.0-40.0) % [facility] % (Auto) 10.4 (0.0-15.0) % Eos % (Auto) 9.6 H (0.0-7.0) % Baso % (Auto) 1.0 (0.0-1.5) % Neut # (Auto) 2.8 (1.4-5.7) K/uL Lymph # (Auto) 1.9 (0.6-2.4) K/uL [facility] # (Auto) 0.6 (0.0-0.8) K/uL Eos # (Auto) 0.6 (0.0-0.7) K/uL Baso # (Auto) 0.1 (0.0-0.1) K/uL Nucleated RBC % 0.0 /100WBC Nucleated RBCs # 0 K/uL Sodium 145 (136-148) mmol/L Potassium 4.1 (3.5-5.1) mmol/L Chloride 110 H (98-107) mmol/L Carbon Dioxide 30.5 (21.0-32.0) mmol/L BUN 7 (7.0-18.0) mg/dL Creatinine 1.0 (0.8-1.3) mg/dL Est Cr Clr Drug Dosing 123.23 mL/min Estimated GFR (MDRD) > 60.0 ml/min Glucose 99 (74-106) mg/dL Calcium 8.4 L (8.5-10.1) mg/dL Vancomycin Trough 17.6 H (5.0-10.0) ug/mL [facility] Results - Last 24 hrs: Microbiology 11/01/18 06:38 Aerobic Blood Culture - Preliminary Blood - Venous - Lab Draw NO GROWTH AFTER 4 DAYS Anaerobic Blood Culture - Preliminary NO GROWTH AFTER 4 DAYS 11/01/18 06:30 Aerobic Blood Culture - Preliminary Blood - Venous NO GROWTH AFTER 4 DAYS Anaerobic Blood Culture - Preliminary NO GROWTH AFTER 4 DAYS Med Orders - Current: Current Medications Acetaminophen (Tylenol) 650 mg PO Q4H PRN PRN Reason: Pain (mild 1-3) Last Admin: 11/05/18 00:14 Dose: 650 mg Enoxaparin Sodium (Lovenox) 40 mg SUBCUT Q24H [facility] Last Admin: 11/05/18 09:09 Dose: 40 mg Vancomycin HCl 1.5 gm/ Sodium (Chloride) 500 mls @ 250 mls/hr IV Q8H [facility] Last Admin: 11/05/18 05:50 Dose: 250 mls/hr Ibuprofen (Motrin) 400 mg PO Q6H PRN PRN Reason: Pain (mild 1-3) Last Admin: 11/02/18 16:51 Dose: 400 mg Ondansetron HCl (Zofran) 4 mg IVPUSH Q4H PRN PRN Reason: Nausea Quetiapine Fumarate (Seroquel) 50 mg PO BEDTIME [facility] Last Admin: 11/04/18 20:21 Dose: 50 mg Sodium Chloride (Saline Flush) 2.5 ml FLUSH ASDIRECTED PRN PRN Reason: Keep Vein Open Topiramate (Topamax) 25 mg PO BID [facility] Last Admin: 11/05/18 09:09 Dose: 25 mg Vancomycin HCl (Pharmacy To Dose - Vancomycin) 1 dose .XX ASDIRECTED [facility] Discontinued Medications Vancomycin HCl 1 gm/ Sodium (Chloride) 250 mls @ 166 mls/hr IV ONETIME ONE Stop: 11/01/18 07:56 Last Admin: 11/01/18 06:42 Dose: 166 mls/hr Sodium Chloride (Normal Saline) 1,000 mls @ 125 mls/hr IV ASDIRECTED [facility] Stop: 11/02/18 16:44 Last Admin: 11/01/18 19:13 Dose: 125 mls/hr Potassium Chloride (Klor-Con M20) 40 meq PO ONETIME ONE Stop: 11/01/18 17:01 Last Admin: 11/01/18 16:22 Dose: 40 meq - Exam General: Reports: Alert, Oriented, Cooperative Neck: Reports: Supple Lungs: Reports: Clear to Auscultation, Normal Respiratory Effort Cardiovascular: Reports: Regular Rate, Regular Rhythm GI/Abdominal Exam: Normal Bowel Sounds, Soft, Non-Tender, No Mass Extremities: Normal Inspection, Normal Range of Motion, Non-Tender Wound/Incisions: Reports: Healing Well, Erythema Improving (small area of induration to L AC. no fluctuance.) Neurological: Reports: No New Focal Deficit Psy/Mental Status: Reports: Alert, Normal Affect, Normal Mood
== END 2018-11-05 13:43 | disposition home or self-care (01) | DRG 603 ==
LOC: MW.ED 04:54 → MW.MS 06:42 → OBSVTOIN 11-04 08:59 → MW.MS 11-04 09:44
PROVIDERS: ADMIT Internal Medicine; ATTEND Internal Medicine
DX: L03.114 Cellulitis of left upper limb (principal); E78.5 Hyperlipidemia, unspecified; E78.00 Pure hypercholesterolemia, unspecified; F41.9 Anxiety disorder, unspecified; F32.9 Major depressive disorder, single episode, unspecified; F17.210 Nicotine dependence, cigarettes, uncomplicated; F19.10 Other psychoactive substance abuse, uncomplicated; F43.10 Post-traumatic stress disorder, unspecified
CPT/HCPCS: 36415; 73090-26-LT; 73090-LT; 80048; 80053; 80202; 80305-QW; 81003; 83605; 85025; 87040; 96365; 96366; 96372; 96376; 99283; 99284-25; A9270-GY; G0378; J1650; J3370; J7040; J7050